=== PATIENT | female | born 1985 | race African-American/Black ===

== ENCOUNTER 2021-03-21 14:41 | Emergency (ER) | payer MEDICAID, SELFPAY ==
[2021-03-21 14:43] VITALS: BP 109/92; PULSE 83; RESP 16; TEMP 35.5; O2SAT 97; BMI 24.3
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
== END 2021-03-21 15:34 | disposition home or self-care (01) ==
PROVIDERS: Emergency Provider Emergency Medicine
DX: S93.401A Sprain of unspecified ligament of right ankle, initial encounter (principal); S90.811A Abrasion, right foot, initial encounter; V49.40XA Driver injured in collision with unspecified motor vehicles in traffic accident, initial encounter; Y93.89 Activity, other specified; Y92.9 Unspecified place or not applicable; Y99.9 Unspecified external cause status
CPT/HCPCS: 73610; 99285